=== PATIENT | female | born 1975 | race Caucasian/White ===

== ENCOUNTER 2021-08-30 08:30 | Emergency (ER) | payer MEDICAID ==
[~2021-08-30] VITALS: Ht 167.6 cm; Wt 75.7 kg
[2021-08-30 08:35] VITALS: BP 129/75
[2021-08-30] MEDS ORDERED: KETOROLAC 60 MG/2 ML VIAL IM ONE (08:35)
--- NOTE | 2021-08-30 08:47 | NUR ---
PT AMBULATED TO BATHROOM WITH STEADY GAIT
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
--- NOTE | 2021-08-30 08:52 | NUR ---
DR HONG AT BEDSIDE EVALUATING PT
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
[2021-08-30] MEDS ORDERED: IBUP-2213 PO (09:18)
[2021-08-30 09:50] VITALS: BP 116/78
== END 2021-08-30 09:54 | disposition home or self-care (01) ==
LOC: MED 08:30
DX: S09.90XA Unspecified injury of head, initial encounter (principal); F17.200 Nicotine dependence, unspecified, uncomplicated; I10 Essential (primary) hypertension; Z86.69 Personal history of other diseases of the nervous system and sense organs; Z98.890 Other specified postprocedural states; Z88.8 Allergy status to other drugs, medicaments and biological substances; Z88.1 Allergy status to other antibiotic agents; Y08.89XA Assault by other specified means, initial encounter; Y93.89 Activity, other specified; Y92.89 Other specified places as the place of occurrence of the external cause; Y99.8 Other external cause status
CPT/HCPCS: 81002; 81025; 96372; 99283; J1885

== ENCOUNTER 2021-09-01 20:24 | Emergency (ER) | payer SELFPAY ==
[~2021-09-01] VITALS: Ht 167.6 cm; Wt 68.5 kg
[2021-09-01 20:24] VITALS: BP 134/92
[~2021-09-01 20:24] MED LIST: IBUP-2213 PO
--- NOTE | 2021-09-01 20:27 | NUR ---
TO LOBBY A/W BED VIA WHEELCHAIR
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
[2021-09-01 21:48] LABS: BASOPHILS % (AUTO) 0.6 % (0.0-2.0); EOSINOPHILS # (AUTO) 0.1 K/uL (0-0.4); EOSINOPHILS % (AUTO) 3.1 % (0.0-4.0); LYMPHOCYTES # (AUTO) 1.1 K/uL (2.5-16.5); LYMPHOCYTES % (AUTO) 25.9 % (20.5-51.1); MEAN CORPUSCULAR HEMOGLOBIN 29 pg (27-31); MEAN CORPUSCULAR HGB CONC 33 g/dL (33-37); MEAN CORPUSCULAR VOLUME 87.3 fL (80-94); MONOCYTES # (AUTO) 0.4 K/uL (0.8-1.0); MONOCYTES % (AUTO) 10.3 % (1.7-9.3); NEUTROPHILS # (AUTO) 2.6 K/uL (1.8-7.7); NEUTROPHILS % (AUTO) 60.1 % (42.2-75.2); PLATELET COUNT (AUTO) 319 K/uL (140-450); RED BLOOD CELL COUNT(AUTO) 4.12 MIL/uL (4.20-5.40); RED CELL DISTRIBUTION WIDTH 15.5 % (11.6-13.7); WHITE BLOOD COUNT (AUTO) 4.3 K/uL (4.8-10.8)
--- NOTE | 2021-09-01 22:21 | NUR ---
Dr. Grace examining patient.
[2021-09-01 22:25] LABS: ALBUMIN 3.4 g/dL (3.4-5.0); ANION GAP 7.9 (8-16); CARBON DIOXIDE 30.4 mmol/L (21-32); CREATININE 0.6 mg/dL (0.6-1.3); POTASSIUM 3.3 mmol/L (3.5-5.1); TOTAL BILIRUBIN 0.3 mg/dL (0.0-1.0)
[2021-09-02] MEDS ORDERED: NAPR-54 PO (00:49)
[2021-09-02 01:21] VITALS: BP 130/89
== END 2021-09-02 01:21 | disposition home or self-care (01) ==
LOC: MED 20:24
DX: S06.0X0A Concussion without loss of consciousness, initial encounter (principal); R53.1 Weakness; R53.83 Other fatigue; X58.XXXA Exposure to other specified factors, initial encounter; Y93.89 Activity, other specified; Y92.89 Other specified places as the place of occurrence of the external cause; Y99.8 Other external cause status
CPT/HCPCS: 36415; 70450; 80053; 81002; 81025; 85025; 99284